=== PATIENT | male | born 1940 | race Two or more races ===

== ENCOUNTER 2016-11-27 18:05 | Inpatient (IN) | payer SELFPAY ==
[~2016-11-27] VITALS: Ht 154.9 cm; Wt 106.5 kg
--- NOTE | ~2016-11-27 | ER ---
PATIENT'S NAME: [facility] AGE: 76 Y [address] ROOM: [place] [address] LOCATION: [facility] ADMIT DATE: 11/27/2016 ER/Outpatient Report DISCHARGE DATE: FAMILY PHYSICIAN: PHYSICIAN, UNKNOWN ATTENDING PHYSICIAN: Shlomo Rivero Time of Arrival: 1803 hours. Time of Evaluation: 1803 hours. CHIEF COMPLAINT: Left hip pain. HISTORY OF PRESENT ILLNESS: The patient arrived per EMS ambulance. He slipped and fell in the kitchen at home landing on his left hip. He has pain in the left hip area. Denies hitting his head. Did not have any loss of consciousness. ALLERGIES: NO KNOWN ALLERGIES. CURRENT MEDICATIONS: On his chart and reviewed by me. PAST MEDICAL HISTORY: Hypertension, hyperlipidemia, noninsulin-dependent diabetes, osteoarthritis. PAST SURGICAL HISTORY: Negative. SOCIAL HISTORY: He lives with his niece. Denies use of tobacco, drugs, or alcohol. REVIEW OF SYSTEMS: Negative other than those mentioned in the HPI. PHYSICAL EXAMINATION: VITAL SIGNS: He weighed 105.4 kg, blood pressure was 198/91, pulse of 91, respirations 18, temperature of 97.8, O2 saturation was 97% on room air. GENERAL: He is awake, alert, and oriented x4. SKIN: [place], warm, and dry. RESPIRATIONS: Even and nonlabored. Lung sounds are clear throughout. HEART: Regular rate and rhythm. ABDOMEN: Soft, nondistended. Bowel sounds are present. He does have shortening of the left leg. He has strong left pedal pulses. PATIENT'S NAME: [facility] AGE: 76 Y [address] ROOM: [address] [address] LOCATION: [facility] ADMIT DATE: 11/27/2016 ER/Outpatient Report DISCHARGE DATE: FAMILY PHYSICIAN: PHYSICIAN, UNKNOWN ATTENDING PHYSICIAN: Shlomo Rivero EMERGENCY ROOM COURSE: The patient was given Zofran 4 mg IV upon arrival to the ER because he vomited and has generalized nausea. X-ray was completed. It shows a intertrochanteric fracture of the left hip. Patient was given fentanyl for pain. Dr. Daugherty, who is on Ortho Trauma call was here in the ER. He did examine the patient. Dr. Shlomo Rivero was contacted regarding the patient. He will admit the patient with Dr. Daugherty consulting. Hip protocol orders were completed. LABORATORY DATA: Sodium is 133, potassium 3.7, chloride of 97, his glucose is 192, BUN is 22, creatinine 1.2. His EGFR is 59. white count is 13.8, hemoglobin is 11.1 with hematocrit of 34. IMPRESSION: Left hip fracture. PLAN: The patient will be admitted for services of Dr. Shlomo Rivero and Dr. Daugherty. Family and the patient are aware of plan. MEIRSSA ACEVEDO APRN FOR MD JOAO COLE/modlupe /[id number] d: 11/27/16 2354 t: 12/04/16 1436, OUTPATIENT REPORT
--- NOTE | ~2016-11-27 | CON ---
PATIENT'S NAME: [facility] AGE: 76 Y [address] ROOM: [address] [address] LOCATION: [facility] ADMIT DATE: 11/27/2016 Consultation DISCHARGE DATE: FAMILY PHYSICIAN: PHYSICIAN, UNKNOWN ATTENDING PHYSICIAN: Shlomo Rivero DATE OF CONSULTATION: 11/28/2016 REFERRING PHYSICIAN: ANISHA PITTS MD Intraoperative Consultation HISTORY OF PRESENT ILLNESS: The patient is a 76-year-old Guinean male, initially admitted secondary to a left hip fracture. Staff was unable to place Jeffrey catheter throughout the day and I was consulted to place a Jeffrey catheter intraoperatively. I entered the operating room where the patient was already asleep and intubated. The patient was lying in his hospital bed. The groin area was prepped and draped in normal sterile fashion. It is quite apparent that the patient's anatomy was not normal. 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 Both testicles were nonpalpable. The scrotum was not fully developed. Of further note, the patient lacked facial hair considering his advanced age. I initially dilated the foreskin to visualize his glans. I initially attempted to pass a 16-Venezuelan Jeffrey catheter unsuccessfully. I then attempted flexible cystoscopy and again was unable to enter the urethra. I was able to pass a guidewire and attempted to pass a Jeffrey catheter over the wire unsuccessfully. Finally, I passed a filiform and I was able to dilate the urethra from #8-Venezuelan with followers to 12-Venezuelan. I then attempted to pass a 10-Venezuelan catheter unsuccessfully, and finally, we located an #8-Venezuelan catheter, which I was able to pass draining clear yellow urine. 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 PLAN: We will continue Jeffrey catheter for the present time. I will discuss this with the family in the future, but in view of his advanced age, we will not proceed with a complete workup since again at his advanced age there is no reason to make major changes to his life at this stage. KENNETH ROONEY MD PATIENT'S NAME: [facility] AGE: 76 Y [address] ROOM: [address] [address] LOCATION: [facility] ADMIT DATE: 11/27/2016 Consultation DISCHARGE DATE: FAMILY PHYSICIAN: PHYSICIAN, UNKNOWN ATTENDING PHYSICIAN: Shlomo Rivero/eduardo /[id number] d: 11/30/16 0116 t: 12/05/16 1207, CONSULTATION REPORT
--- NOTE | ~2016-11-27 | OR ---
PATIENT'S NAME: JOELLEN [facility]ALPH [facility] AGE: 76 Y [address] ROOM: [place] [address] LOCATION: [facility] ADMIT DATE: 11/27/2016 OR/Procedure Report DISCHARGE DATE: FAMILY PHYSICIAN: PHYSICIAN, UNKNOWN ATTENDING PHYSICIAN: Shlomo Rivero SURGEON: Armand Daugherty MD SENIOR SCHEDULER: None. DATE OF PROCEDURE: 11/28/2016 PREOPERATIVE DIAGNOSIS: Left intertrochanteric femur fracture. POSTOPERATIVE DIAGNOSIS: Left intertrochanteric femur fracture. PROCEDURE PERFORMED: Intramedullary nailing of left intertrochanteric femur fracture. ANESTHESIA: General. ESTIMATED BLOOD LOSS: 200 mL. IMPLANTS: Synthes TFN advanced left 130-degree angle 12 x 360 femoral nail with a 110 mm screw into the head. INDICATIONS: Joellen is a 76-year-old gentleman who sustained a left intertrochanteric femur fracture after a ground-level fall. He was evaluated by primary care provider who admitted him to the hospital and Cardiology had cleared him for surgical intervention. Risks, benefits, and alternatives of surgery including the possibility of from the anesthetic, impaired mobility, need for further surgery, nonunion, prior prosthetic fracture, infection, wound healing issues, and other complications were discussed. All questions were answered and the family and the niece, who is the power of workers compensation defense attorney, gave informed consent for surgical intervention. DESCRIPTION OF PROCEDURE: The patient was transferred to the operating room. A Jeffrey catheter was tentatively placed. This was extremely difficult and Urology was consulted. He underwent a very difficult 2-hour Jeffrey catheter placement with cystoscopy. After this was completed, he was placed on the fracture table. All bony prominences were adequately padded. His right leg was placed into a pillow, held down, along the bar and the Alfredo table and the left side was placed in a boot. With traction, closed reduction was completed and fluoroscopy was utilized to confirm both appropriate reduction and the ability to obtain adequate images. His body habitus did make it significantly more difficult to obtain images and a portion of his pannus was taped out of the way as his BMI was over 50. PATIENT'S NAME: JOELLEN [facility]AL[facility] AGE: 76 Y [address] ROOM: [place] [address] LOCATION: [facility] ADMIT DATE: 11/27/2016 OR/Procedure Report DISCHARGE DATE: FAMILY PHYSICIAN: PHYSICIAN, UNKNOWN ATTENDING PHYSICIAN: Shlomo Rivero The procedure was begun with a guidewire placed to the tip of the trochanter followed by this, being placed into the femur. An incision was made down to the level of this. The opening reamer was then placed over the top of this down to the level below the lesser trochanter. A long guidewire was then placed down the level of the femur. Reamers were then utilized sequentially starting with 10 up to a 13.5 obtaining some chatter in the diaphysis for the nails to be placed. The nail length was measured. It was between 360 and 380 and a 360 mm nail was selected. Fluoroscopy confirmed appropriate position of the wire and length. The nail was then impacted into place gently. Distally, it abutted the anterior cortex. However, on live fluoroscopy, there was no perforation of the cortex and the implant was stable there. AP and lateral fluoroscopy was then utilized at the hip to get the nail into the appropriate position and a guidewire was placed. AP and lateral fluoroscopy was again utilized. The guidewire was changed slightly and positioned as it was aimed anteriorly and was in appropriate position with the tip-apex distance of less than 25 mm. An incision had been made for the guide to this and this was then drilled, followed by placement with the wire. The cap was placed, turned back, half turned to allow for some controlled compression at the fracture site postoperatively and a compression was also completed intraoperatively utilizing the jig that creates compression against the nail, which did slightly close down the minimally visible fracture site. Attention was then turned distally. Due to the nail abutting the anterior cortex, the decision was made not to place any distal interlocking screws. This was a stable intertrochanteric fracture. We did not want to create a stress riser distally. Final arthroscopy confirmed appropriate position on AP and lateral fluoroscopy throughout the femur. The wounds were irrigated and then closed with 0 Vicryl deep, followed by 2-0 Vicryl subcutaneously, and john for the skin. Sterile dressings were applied. The patient was returned to the post anesthetic care unit in good condition. POSTOPERATIVE CONDITION: The patient was transferred back to the floor in stable condition. DISPOSITION: The patient will be weightbearing as tolerated with assistive devices. I plan to see him back in 2 weeks. We placed him on Lovenox for DVT prophylaxis and received IV antibiotics postoperatively. PATIENT'S NAME: JOELLEN [facility] AGE: 76 Y [address] ROOM: [place] [address] LOCATION: [facility] ADMIT DATE: 11/27/2016 OR/Procedure Report DISCHARGE DATE: FAMILY PHYSICIAN: PHYSICIAN, UNKNOWN ATTENDING PHYSICIAN: Shlomo Rivero MD PN/modl /[id number] d: 11/30/16 0853 t: 12/19/16 1449, OPERATIVE SUMMARY
--- NOTE | ~2016-11-27 | ECHO ---
Transthoracic Echocardiography Report (TTE) Demographics Patient Name JOELLEN RALPH Date of Study 11/28/2016 Patient Number [id number] Visit Number [id number] Date of 1940 Room Number G3304 Gender Male Number Age 76 year(s) Referring Mat Freedman MD Sql Bi Developer Tricia Sauer [facility], Physician Lorna Mcneal RVT Physician Interpreting Lorna Mcneal Live In Housekeeper Nanny Physician Supervising Ordering Lorna Mcneal MD/MLP Physician MD Nurse Stress Mortgage Loan Officer Originator Conclusions Contractility Score Summary Normal Left Ventricular contractility was noted. Summary Technically difficult study. Normal LV/RV size and systolic function. The estimated left ventricular ejection fraction is 60-65%. Diastolic assessment reveals Grade I diastolic dysfunction. The left atrium is moderately dilated by LA volume index measurement. Mild tricuspid regurgitation by color Doppler. There is mild pulmonary hypertension. The pulmonary pressure (RVSP) is 47 mmHg. The pulmonic valve is not well visualized. No significant valvular abnormalities. No evidence of pericardial effusion. Procedure Type of Study TTE procedure:2D Echocardiogram. Procedure Date Date: 11/28/2016 Start: 07:55 AM Study Location: Inpatient Portable Technical Quality: Fair due to patient immobility. Indications:Pre surgical clearance. Appropriate Use Criteria: 9 Patient Status: Routine Rhythm: Within normal limits HR: 76 bpm BP: 150/70 mmHg M-Mode/2D Measurements LV Diastolic Dimension: 4.98 cm LV Systolic Dimension: 3.26 cm LV Septum Diastolic: 0.99 cm LV PW Diastolic: 1.09 cm AO Root Dimension: 1.7 cm Cardiac Output: 7.68 l/min LA Dimension: 3.9 cm LA volume: 95 ml LVOT: 2 cm IVC Inspiration: 0.77 cm LVOT VTI: 32.2 cm RV Base: 3.01 cm LV Stroke volume: 101.11 ml RV Mid: 2.04 cm RV Length: 6.45 cm TAPSE: 2.02 cm TDI-S': 15.7 cm/s Doppler Measurements AV Peak Velocity: 1.95 m/s MV Peak E-Wave: 1.06 m/s AV Peak Gradient: 15.21 mmHg MV Peak A-Wave: 1.3 m/s AV Mean Gradient: 6 mmHg MV E/A Ratio: 0.82 LVOT Peak Velocity: 1.17 m/s MV P1/2t: 62 msec TR Gradient:47.06 mmHg PV Peak Velocity: 1.25 m/s Estimated RAP:5 mmHg PV Peak Gradient: 6.25 mmHg Estimated RVSP: 52 mmHg Estimated PASP: 52.06 mmHg E' Septal Velocity: 0.06 m/s A' Septal Velocity: 0.11 m/s E' Lateral Velocity: 0.06 m/s A' Lateral Velocity: 0.13 m/s MV E/E' Ratio: 17.6 Findings Left Ventricle The estimated left ventricular ejection fraction is 60-65%. Diastolic assessment reveals Grade I diastolic dysfunction. Right Ventricle Normal right ventricle structure and function. Left Atrium The left atrium is moderately dilated by LA volume index measurement. Right Atrium Normal right atrial size. IVC imaging is consistent with normal RA pressures. Mitral Valve Mild mitral regurgitation by color Doppler. Mild mitral annular calcification. Aortic Valve The aortic valve is mildly sclerotic. Tricuspid Valve Mild tricuspid regurgitation by color Doppler. There is moderate pulmonary hypertension. The pulmonary pressure (RVSP) is 52mmHg. Pulmonic Valve The pulmonic valve is not well visualized. Pericardial Effusion No evidence of pericardial effusion. Miscellaneous Visualized portions of the aortic root and ascending aorta appear normal in size. Pleural Effusion No evidence of pleural effusion. Signature dtt: TOM HUERTAS dtd: 11/28/16 0755 Physician Self Edit
--- NOTE | ~2016-11-27 | CON ---
PATIENT'S NAME: [facility] AGE: 76 Y [address] ROOM: [place] [address] LOCATION: [facility] ADMIT DATE: 11/27/2016 Consultation DISCHARGE DATE: FAMILY PHYSICIAN: PHYSICIAN, UNKNOWN ATTENDING PHYSICIAN: Shlomo Rivero REFERRING PHYSICIAN: ANISHA PITTS MD CHIEF COMPLAINT: Left hip pain. HISTORY OF PRESENT ILLNESS: Mr. Worrell is a 76-year-old gentleman who sustained a ground-level fall when pitching today and noted severe left hip pain. He was brought here by ambulance. He complained of significant pain in his left hip. No numbness or tingling. He is Yakut speaking and family helped provide more information. No other areas of pain at this time. He feels his muscle spasming. Pain with any movement. Pain is relieved by rest, as well as narcotic pain medication. No history of injuries to hip. PAST MEDICAL HISTORY: Positive for diabetes, hypertension. PAST SURGICAL HISTORY: No prior orthopedic surgery. CURRENT MEDICATIONS: Medication list reviewed in the chart. ALLERGIES: NO KNOWN MEDICATION ALLERGIES. SOCIAL HISTORY: The patient lives with his niece who is his medical power of claims attorney. FAMILY HISTORY: Negative for bleeding or anesthesia complications. REVIEW OF SYSTEMS: Negative except as above. PHYSICAL EXAMINATION: GENERAL: He is in minimal distress. NEUROLOGIC: He is awake and alert. CARDIOVASCULAR: Well-perfused distal extremities. RESPIRATORY: Nonlabored respirations. PSYCHIATRIC: Appropriate mood and affect. PATIENT'S NAME: [facility] AGE: 76 Y [address] ROOM: [place] [address] LOCATION: [facility] ADMIT DATE: 11/27/2016 Consultation DISCHARGE DATE: FAMILY PHYSICIAN: PHYSICIAN, UNKNOWN ATTENDING PHYSICIAN: Shlomo Rivero EXTREMITIES: Left lower extremity: His left lower extremity is slightly short compared to the right. It is held in slight external rotation. He has palpable dorsalis pedis pulse. He has sensation intact distally throughout his foot. He has tenderness at his proximal thigh and hip region and with any attempted range of motion of his hip. He has no tenderness about his distal aspect or mid aspect of his femur. SKIN: Intact throughout. He had decreased range of motion secondary to pain. He has no significant laxity on exam, but unable to fully assess his hips secondary to pain. No pain with the contralateral lower extremities. Sensation is intact throughout the right lower extremity and he has normal strength in his EHL and FHL on the contralateral right side. IMAGING: X-rays of the AP and pelvis from left hip shows an intratrochanteric left femur fracture. DIAGNOSIS: Left intratrochanteric femur fracture, closed, initial encounter, displaced. PLAN: I had a discussion with both he and his family, and medical power of claims attorney about surgical intervention for this, given his displaced hip fracture. We did discuss the risks and complications including potential risk of from anesthesia and surgery as well as the possibility of infection, nonhealing wounds, need for further surgery, malunion of the fracture site, need for removal of hardware, damage to the adjacent structures, blood transfusion, and other potential complications. All their questions were answered and they would like to proceed with surgical intervention. The patient is also being seen by Dr. Shlomo Rivero, his primary care provider, and likely will have Cardiology evaluate him for clearance prior to surgical intervention to make sure that he is optimized maximally. We will likely plan for surgery on 11/28/2016 in the late afternoon and evening if he is cleared for the surgery by that time. Thank you for this consultation and allowing us to be involved in the patient's care. MD SHWETHA POTTS/eduardo PATIENT'S NAME: JOELLEN WORRELL [facility] AGE: 76 Y [address] ROOM: [address] [address] LOCATION: [facility] ADMIT DATE: 11/27/2016 Consultation DISCHARGE DATE: FAMILY PHYSICIAN: PHYSICIAN, UNKNOWN ATTENDING PHYSICIAN: Shlomo Rivero /[id number] d: 11/28/1653 t: 12/19/16 1452, CONSULTATION REPORT
--- NOTE | ~2016-11-27 | CON ---
PATIENT'S NAME: LOREE [facility] AGE: 76 Y [address] ROOM: [address] [address] LOCATION: [facility] ADMIT DATE: 11/27/2016 Consultation DISCHARGE DATE: FAMILY PHYSICIAN: PHYSICIAN, UNKNOWN ATTENDING PHYSICIAN: Shlomo Rivero REFERRING PHYSICIAN: ANISHA PITTS MD HISTORY OF PRESENT ILLNESS: The patient is a 76-year-old male who is here for a fractured left hip. He will be undergoing operative repair and Cardiology was consulted for cardiology clearance prior to surgery. The patient had fallen in his home yesterday afternoon landing on left hip and had come to the ER via EMS. Imaging confirmed a left hip fracture. The patient denies any previous history of heart disease with the exception of hypertension. He denies any chest pain, shortness of breath, palpitations, or chest pressure. There is occasional discomfort in the left upper thorax only with movement of the left arm such as working in the kitchen or carrying things. It only occurs with movement of the left arm and only sporadically occurring 1 or 2 times a month. He denies ever having a diagnosis of congestive heart failure. He denies ever having an IN. He denies ever being told that he has coronary artery disease. ALLERGIES: NO KNOWN ALLERGIES. CURRENT MEDICATIONS: See med chart/MAR PAST MEDICAL HISTORY: Hypertension, hyperlipidemia, wtx-gdskadb-eulgwldhg diabetes, and osteoarthritis. PAST SURGICAL HISTORY: Negative. SOCIAL HISTORY: Lives with his niece. Denies tobacco, alcohol, or drugs. REVIEW OF SYSTEMS: Negative other than those listed in the HPI. No recent fevers, illness, chest pain, nausea, vomiting, or change in bowel pattern. Musculoskeletal, positive for left hip pain. PHYSICAL EXAMINATION: VITAL SIGNS: 150/70, pulse rate of 82, respiration rate 16, and temperature 97.9. GENERAL: Alert and oriented, in no acute distress. PATIENT'S NAME: [facility] AGE: 76 Y [address] ROOM: [address] [address] LOCATION: [facility] ADMIT DATE: 11/27/2016 Consultation DISCHARGE DATE: FAMILY PHYSICIAN: PHYSICIAN, UNKNOWN ATTENDING PHYSICIAN: Shlomo Rivero CARDIAC: Regular rate and rhythm without murmurs, gallops, or rubs. PULMONARY: Clear to auscultation without crackles, wheezes, or rhonchi. ABDOMEN: Soft and nontender. Bowel sounds present. LABORATORY DATA: Normal CMS with the exception of elevated glucose of 192. Creatinine is 1.2. Normal CBC with the exception of elevated white count 13.8, likely secondary to inflammatory process in left hip. H and H within normal limits. ASSESSMENT AND PLAN: A 76-year-old male admitted for left hip fracture with plan for operative repair. Cardiology consult for clearance prior to surgery. Pre-Op Cardiology Risk Assessment: The patient does not have any concerning indications for elevated surgical risk. He does not have any malignant arrhythmias. He is not in acute CHF exacerbation and is not experiencing acute coronary syndrome. Creatinine is within normal limits. H and H within normal limits. He is not an insulin-dependent diabetic. At this time for an intermediate risk procedure with the patient factors of low risk, his risk for surgical procedure is low at this point in time (RCRI I). There was no evidence on echocardiogram of congestive heart failure, he has good wall motion and no valve defects. EKG acceptable. Okay from Cardiology standpoint to proceed with operative fixation of left hip fracture. FAWN RAMESH MD RESIDENT FOR MD GOGO REECE/eduardo /[id number] d: 11/28/16 1210 t: 12/07/16 0902, CONSULTATION REPORT
[~2016-11-27 18:05] MED LIST: AUGMENTIN875 MG PO; CRESTOR5 MG PO; GLUCOPHAGE1000 MG PO; GLUCOTROL 5MG XL5 MG PO; HYDROCHLOROTHIA25 MG PO; LOPRESSOR50 MG PO; NORVASC5 MG PO
[2016-11-27 19:07] LABS: BASOPHIL # 0.1 K/uL (0.0-0.2); BASOPHIL % 0.7 %; EOSINOPHIL # 0.4 K/uL (0.0-0.5); EOSINOPHIL % 2.9 %; HEMOGLOBIN 11.1 g/dL (11.0-16.0); IMMATURE GRANULOCYTE # 0.2 K/uL (0.0-0.3); IMMATURE GRANULOCYTE % 1.1 %; LYMPHOCYTE # 3.2 K/uL (0.8-4.0); LYMPHOCYTE % 22.8 %; MCH 26.6 pg (27.0-34.0); MCHC 32.6 gm/dL (32.0-36.5); MCV 81.5 fl (83.0-98.0); MONOCYTE # 0.7 K/uL (0.0-1.0); MONOCYTE % 4.8 %; MPV 9.1 fl (9.4-12.4); NEUTROPHIL # (ANC) 9.4 K/uL (1.4-9.0); NEUTROPHIL % 67.7 %; NRBC % 0 /100WBC (0-0.00); PLATELET COUNT 349 K/uL (150-450); RBC 4.17 M/uL (3.50-5.50); WBC 13.8 K/uL (4.0-11.0)
[2016-11-27 19:17] LABS: INR - (THERAPEUTIC) 0.95 (0.92-1.07); PTT 28 SECONDS (25-32)
[2016-11-27 19:22] LABS: ALBUMIN 3.5 gm/dL (3.5-5.0); ANION GAP 14.7 (10.0-19.0); CALCIUM 8.7 mg/dL (8.5-10.5); CREATININE 1.2 mg/dL (0.6-1.3); PHOSPHORUS 2.9 mg/dL (2.5-4.9); POTASSIUM 3.7 mMol/L (3.7-5.1)
--- NOTE | 2016-11-28 01:20 | NUR ---
Patient is Vietnamese speaking only. Lives with his daughter, jatin and her . Family stated that patient was ambulating with his cane in the kitchen when he stepped on a piece of cheese, lost his footing and fell. Deny patient hitting his head or LOC. Patient is alert and oriented x 3.
--- NOTE | 2016-11-28 03:27 | NUR ---
Shift Summary: Patient is Brazilian Speaking only. Family speak Greek well and are with patient at all times. Multiple attempts made to insert a cook cath without success. Patient is able to void per urinal. Gave one dose of Morphine IV and a percocet with HS meds. He has been NPO since [place] for surgery this evening.
--- NOTE | 2016-11-28 12:00 | NUR ---
SPOKE TO JOELLEN AND HIS GRANDAUCECILTER FRANCHESKA AT THE BEDSIDE, ALONG WITH HIS SPOUSE. INTRODUCED CM AND OUR ROLE. PATIENT LIVES IN OWN HOME WITH HIS GRANDAUGHTER FRANCHESKA WHO IS HIS PRIMARY CUT OUT STITCHER. FRANCHESKA INFORMS ME THAT THE PLAN IS FOR JOELLEN TO RETURN HOME ONE HE IS READY FOR DISCHARGE. AND SHE WILL BE THERE TO HELP HIM NEEDED. WILL CONT TO FOLLOW NEEDED.
--- NOTE | 2016-11-28 13:54 | NUR ---
A - CONSULT PER HIP FRACTURE ORDER SET. HT: 154.94 CM, WT: 234#, BMI: 44.3, IBW: 50.9 KG, %IBW: 209% ITALIAN SPEAKING, FAMILY TRANSLATES FOR PT. SURGERY TODAY EVENING. PER RECORD, WEIGHT STABLE SINCE APR 13 2015. LABS: NA 133, GLU 192, PRE-ALB 21, A1C 6.5%, CRP 0.55 MEDS: MILD SSI. DIET: NPO FOR SURGERY. FAMILY PRESENT DURING VISIT. PATIENT'S APPETITE GOOD PRIOR TO ADMISSION. ABOUT 10# OF INTENTIONAL WEIGHT LOSS. DENIED ANY QUESTIONS AT THIS TIME. EST NEEDS: [id number] KCAL (28-32 KCAL/KG IBW), 77-102 GRAMS PROTEIN (1.5- 2 GRAMS/KG IBW), FLUID NEEDS: 1ML/KCAL D - INCREASED NUTRIENT NEEDS RELATED TO HEALING EVIDENCED BY HIP SURGERY TODAY. I - WILL TRIAL GLUCERNA ONCE DAILY ONCE DIET ADVANCE. M/E - GOAL: PT WILL BE ABLE TO TOLERATE >65% OF MEALS IN 3-5 DAYS.
--- NOTE | 2016-11-28 15:28 | NUR ---
Pt is NPO for OR. He has been on bedrest and position changed every 2 hrs. Pt has ice to left hip. Left leg shortened. CSM WNL. Pt voids per urinal with nurse assistance. Has had 1175 out. manager bar unable to place cook. Pt has had percocet x1 and MS 2 mg IV x2, last at 1505. Pt doesn't speak Tunisian. Family has been here and translate for him. Pt diabetic and BS were 107 at 1100. IS use fair at 500-750 with assistance. He was cleared by Cardiology and had echo this morning. He is ready for OR.
--- NOTE | 2016-11-29 05:07 | NUR ---
Significant Event:PATIENT RETURN TO ROOM AT 2245. VERY DROWSY. HAD A LEFT HIP TFN, HAD GENERAL ANESTHESIA, WITH FASCIAILIACA BLOCK. PATIENT WAS UNABLE TO ACQUIRE SENATION DUE TO DROWSY STATE, BUT LATER AWOKE MORE, WIGGLES TOES, MOVES FEET. DENIES NUMB-TINGLING. BILATERAL FOOT PUMPS TO FEET. TAKEN SIPS OF WATER. NO NAUSEA. LEW CATHETER EMPTIED 450ML URINE. IV FLUIDS INFUSING. ON ATB ANCEF THERAPY HAD LAST AT 0200. BEEN REPOSITIONED IN BED RT SIDE. ICE BAG TO LEFT HIP. DRSG MEDIPORFelton DRY-INTACT. INCENTIVE SPIROMETER USAGE 750-500. 02 2L NASAL CANNULA AND DECREASED AT 0311 TO 1L. SATS STAYED ABOVE 90%. ON ROUTINE VITALSIGNS. Follow up:
[2016-11-29 05:19] LABS: HEMOGLOBIN 10.1 g/dL (11.0-16.0); MCH 27.7 pg (27.0-34.0); MCHC 33.7 gm/dL (32.0-36.5); MCV 82.2 fl (83.0-98.0); MPV 9.5 fl (9.4-12.4); PLATELET COUNT 296 K/uL (150-450); RBC 3.65 M/uL (3.50-5.50); RDW-CV 13.9 % (11.9-14.6)
[2016-11-29 05:46] LABS: ABSOLUTE NEUTROPHIL CT (ANC) 18.1 K/uL (1.4-9.0); BANDED NEUTROPHILS % 5 %; LYMPHOCYTE # 0.4 K/uL (0.8-4.0); LYMPHOCYTE % 2 %; MONOCYTE # 0.6 K/uL (0.0-1.0); SEGMENTED NEUTROPHIL # 17.1 K/uL (1.4-9.0); SEGMENTED NEUTROPHIL % 90 %
--- NOTE | 2016-11-29 16:45 | NUR ---
Significant Event:VSS, rates pain 3-8/10. [place] 1 tab last dose at 1530 with reported relief. Pt tx with minimal assist of 1/GB/Walker. Uses good technique. Dsg to L hip is CDI, CSM is adequate. Reports some numbness in area just above and at the hip. Good sensation/movement to L leg. ACHS, DM oral meds will be restarted late this afternoon. SSI mild scale, with 4 units given at 0700 and 1130. Jeffrey intact, to remain until Urology orders to have it DC. Family member interprets for patient. Follow up:Monitor
--- NOTE | 2016-11-30 04:12 | NUR ---
Significant Event: Vital signs stable. Held HS Norvasc for SBP <140. Edema noted to bilateral lower extremities. Lungs C&D in uppers, diminised in lowers. Encouraged to use IS. CSM WNL to LLE. Dressing to L) hip is CDI. C/o pain this am to R) knee. Ice placed to hip and knee. Jeffrey placed by urology remains in place- will need order to remove. IV SL'd. Transfers with 2 assist. Accucheck at HS was 203. Family at bedside helpful with cares. Encouraged to reposition q 2 hr, but favors laying on R) side. Refuses repositioning this am. Pneumatics on throughout night. Follow up:
--- NOTE | 2016-11-30 16:50 | NUR ---
Significant Event: UP TO RECLINER WITH 2 ASSIST AND AMBUL IN ROOM WITH PHY THER, TOLERATED FAIR, HAD NORCO 1 TAB AT 1130 FOR C/O LEFT HIP PAIN. HAD 700 ML OUT LEW. LAST ACCUCHECK AT 12 NOON WAS 154 REQUIRED NO INSULIN...HIP DRSG D/I... Follow up:
--- NOTE | 2016-11-30 17:00 | NUR ---
HAD RECEIVED CALL FROM PATIENT'S NURSE THAT HIS GRAND DAUGHTER WOULD LIKE FOR JOELLEN TO HAVE HHC. REFERRAL MADE TO [facility] HOME SPOKE TO MELV[facility] AND THEY WILL NOT BE ALBE TO ACCEPT PATIENT. [facility] CAN NOT ACCPET PATIENT IT WILL BE MIDDLE OF NEXT WEEK BEFORE THEY WILL BE ABLE TO SEE ANY NEW PATIENTS/ I MEET WITH PATIENT[facility]S [facility] AND INFORMED HER THAT THERE IS NOT ANY C THAT CAN SEE PATIENT. SHE TELLS ME THAT SHE IS WORKING ON GETTING A FRONT WHEELED WALKER FOR JOELLEN AND THAT THERAPY HAS INSTURCTED HER ON THE EXERCISES THAT JOELLEN WILL NEED TO DO. SHE DOES NOT ANTICIPATE ANY DISCHARGE NEEDS.
--- NOTE | 2016-12-01 05:08 | NUR ---
SIGNIFICANT EVENT: Pt alert, oriented. Speaks little Gibraltarian - Bahamian speaking - granddaughter helps with basic translations. Hypertensive at times. PIV to R) hand is SL. [place] x3 - last at 2329. ACHS accuchecks, no insulin given for HS BG of 120. CSM to L) hip WNL. Wojciech patent. 2PA. Pleasant and cooperative with cares.
--- NOTE | 2016-12-01 12:44 | NUR ---
F/U ON SUPPLEMENT TOLERANCE. PT'S GRANDDAUGHER TRANSLATES FOR HIM. PT WAS DRINKING HIS GLUCERNA DURING THE VISIT. WENT OVER FLAVOR OPTIONS FOR GLUCERNA, PT WOULD LIKE TO TRY THE CHOCOALTE. APPETITE IS REPORTED GOOD. WILL CHANGE GLUCERNAT TO CHOCOLATE QD. F/U PO INTAKE, SUPPLEMENT, AND POC IN 2 DAYS.
--- NOTE | 2016-12-01 17:17 | NUR ---
Significant Event: PT ALERT AND ORIENTED. UP IN THE RECLINER THIS SHIFT. TRANSFERS WITH 2 ASSIST UNSTEADY. ICE TO HIP. ACCUCHECKS AC AND HS. FAMILY IN THE ROOM TO TRANSLATE. PT DOES FAIRLY WELL UNDERSTADNING ICELANDIC. LUOANN KLEIN PRESENT. DR NEVIN LEW DO NOT REMOVE. FAMILY WANTS TO TAKE THE PT HOME. UNSURE OF DISCHARGE DATE. NORCO FOR PAIN. Follow up:
--- NOTE | 2016-12-02 07:10 | NUR ---
SIGNIFICANT EVENT: VSS. HYPERTENSIVE WITH BP'S IN 150'S-160'S. TURNED Q2HRS. 2 PERSON ASSIST WITH LIFT AT TIMES. NORCO FOR PAIN LAST GIVEN @0058. 1L OF 02 WITH SAO2 94-95%. IV SL TO R)FA. FAMILY AT BEDSIDE.
--- NOTE | 2016-12-02 17:04 | NUR ---
Significant Event: pt alert and oriented. family in the room to translate at all times/ pt ambulating better this afternoon. cook remains intact. will need to be addressed tomorrow for removal. placed by dr fish. pt took norco this shift for pain x 1. dressing changed this afternoon. o2 dc'd today. accuchecks ac and hs. faamily wants to take pt home. Follow up:
--- NOTE | 2016-12-03 03:39 | NUR ---
Shift Summary: Patient can ambulate with one assist. Has cook that was placed by . Need to contact him about removing cook for discharge. Patient possible discharge home today. Has large family and extended family to help care for patient at home. He has not had a BM since the . Does not have any PRN meds for constipation. Gave him a warm prune juice with butter last night. No results. He is on AC&HS accuchecks. Did not require insulin last night. Gave tylenol only for pain with good pain control.
--- NOTE | 2016-12-03 10:41 | NUR ---
SPOKE TO JOELLEN PRITCHARD SHE IS HOPING THAT JOELLEN IS DISCHARGE HOME TODAY. SHE REPORTS THAT JOELLEN HAS ALL THE DME AT HOME AND SHE DOES NOT ANTICIPATE THAT JOELLEN HAS ANY DISCHARGE NEEDS.
--- NOTE | 2016-12-03 13:28 | NUR ---
PT MOVED TO NO RISK W/ INTAKE USUALLY 75-100%. WILL CONT GLUCERNA ONCE DAILY. F/U IN 7-10 DAYS.
--- NOTE | 2016-12-03 17:05 | NUR ---
Significant Event: Pt is a/o. Cooperative with cares. Has been up to chair, voiding in BR after cook removed. Plans on discharge after Dr Schmitt sees patient. CSM WNL. Dressing c/d/i. Had BM. VSS. No sliding scale needed. Family @ bedside and assists with cares/interprets. Taking tylenol with adequate pain relief. Follow up:
[2016-12-03] MEDS ORDERED: PRINIVIL (ZESTRI5 MG PO (17:25)
[2016-12-03] MEDS ORDERED: NORCO 7.5-3251 EACH PO (17:27)
[2016-12-03] MEDS ORDERED: LOVENOX 4040 MG/0.4 SUB-Q (17:27)
--- NOTE | 2016-12-03 18:17 | NUR ---
Discharge instructions given to granddaughter. Reviewed all medications, care of dressing, exercises, when to call the doctor, need to make own follow up appt due to clinic being closed, etc. Refer to discharge instructions for details. All questions answered. Grand daughter states she knows how to give lovenox injections, she has given them to another family member. All belongings sent with patient. To front door per w/c.
== END 2016-12-03 18:00 | disposition disaster alternative care site (69) | DRG 481 ==
LOC: GACC 18:05 → G3N 18:49
PROVIDERS: Emergency Medicine; ADMIT Orthopaedic Surgery Hand Surgery
PROC: 0QS736Z Reposition Left Upper Femur with Intramedullary Internal Fixation Device, Percutaneous Approach (ICD-10-PCS; principal; 2016-11-28)
DX: S72.142A Displaced intertrochanteric fracture of left femur, initial encounter for closed fracture (principal); Z68.41 Body mass index [BMI] 40.0-44.9, adult; E11.9 Type 2 diabetes mellitus without complications; E66.01 Morbid (severe) obesity due to excess calories; I10 Essential (primary) hypertension; W18.39XA Other fall on same level, initial encounter; E78.5 Hyperlipidemia, unspecified; M19.90 Unspecified osteoarthritis, unspecified site; Q56.0 Hermaphroditism, not elsewhere classified; I25.10 Atherosclerotic heart disease of native coronary artery without angina pectoris
CPT/HCPCS: A9270; C1713; C1769; J0690; J1650; J2270; J2405; J3010; J7030